=== PATIENT | male | born 1995 | race American Indian/Alaskan Native ===

== ENCOUNTER 2019-09-29 04:08 | Emergency (ER) | payer MEDICAID, SELFPAY ==
--- NOTE | 2019-09-29 04:12 | ED_ITS ---
HPI - Extremity Problem General Chief complaint: Skin/Abscess/Foreign Body Stated complaint: states infection on right thumb Time Seen by Provider: 09/29/19 04:11 History of Present Illness HPI Narrative: 24-year-old gentleman with a history of IV heroin and methamphetamine use disorders. He was originally seen at [facility] on September 09 with a complicated right, infection and tendon sheath infection. Was taken to the operating room and the area was drained. He left the hospital against medical advice shortly thereafter. When the thumb began to look more infected again he presented to [facility] in [place] and was given antibiotics which he was unable to fill. Presents today complaining of increasing right thumb pain and redness but no tenderness up into the wrist or the forearm or suggestion of recurrent tendon sheath involvement yet. He has full sensation distally. He describes no fevers or chills. Reports that he is homeless and has little resources and does not believe he has any friends or family that can help with filling prescriptions. Regarding his addiction issues, he has been seen 1 time at [facility] and [place] He has not chosen to continue at the clinic nor access any of the healthcare services options are prescription options at this were no [facility]. Related Data Previous Rx's Medication Instructions Recorded clindamycin HCl 300 mg PO TID #21 cap 09/29/19 sulfamethoxazole-trimethoprim 1 tab PO BID #20 tab 09/29/19 Allergies Allergy/AdvReac Type Severity Reaction Status Date / Time No Known Drug Allergies Allergy Verified 09/29/19 05:04 Review of Systems Review of Systems Narrative: Pertinent positive and negative findings as per HPI Remainder of review of systems is otherwise unremarkable for Constitutional: Fevers, chills, weakness ENT: No sore throat, neck pain, ear pain CV: Chest pain, palpitations, dyspnea on exertion Respiratory: Cough, wheeze, dyspnea GI: Nausea, vomiting, diarrhea, change in bowel habits, black or bloody stools : Dysuria, hematuria, flank pain MS: Muscle weakness, numbness, joint swelling or warmth Neuro: Syncope, dizziness, tingling Psych: Depression, anxiety, suicidal ideation Patient History Medical History Infection of thumb (Acute) IV drug user (Acute) Methamphetamine use disorder, mild (Acute) Opioid use disorder (Acute) Social History Smoking Status: Current every day smoker Exam Narrative Exam Narrative: General: Dressed in multiple layers, poor eye contact with her the over his head baseball cap covering his eyes. He is able to give an abbreviated history HEENT: Moist mucous membranes, normal sclera with small minimally reactive pupils, Neck: , supple Respiratory: Lungs are clear to auscultation, no wheezing no rales no rhonchi. Full and symmetrical air movement Cardiac: Regular rate and rhythm no murmurs with careful auscultation no bruits Abdomen: Soft nontender good bowel tones, no flank pain Skin: Warm and dry, track miller on the left arm. Neurologic: Grossly neurologically intact with no obvious asymmetries or abnormalities Extremities: Left thumb erythematous slightly swollen not warm to the touch no fluctuance no obvious abscess or drainage. No increase tenderness with flexion or extension and full power with both flexion and extension. Thumb nail is absent. Psych: Reluctantly Cooperative, poor eye contact Initial Vital Signs Initial Vital Signs: Vital Signs Temperature 98.3 F 09/29/19 04:18 Pulse Rate 83 09/29/19 04:18 Respiratory Rate 16 09/29/19 04:18 Blood Pressure 145/85 H 09/29/19 04:18 Pulse Oximetry 98 09/29/19 04:18 Course Orders Ordered: Discontinued Medications Clindamycin HCl (Cleocin) 300 mg PO NOW ONE Stop: 09/29/19 04:56 Last Admin: 09/29/19 05:25 Dose: 300 mg Documented by: YOBANI Trimethoprim/Sulfamethoxazole (Bactrim Ds) 1 tab PO NOW ONE Stop: 09/29/19 04:56 Last Admin: 09/29/19 05:25 Dose: 1 tab Documented by: YOBANI Trimethoprim/Sulfamethoxazole (Bactrim Ds Prepack) 1 bottle MISC SEEINSTR ONE Stop: 09/29/19 04:56 Last Admin: 09/29/19 05:25 Dose: 1 bottle Documented by: YOBANI Vital Signs Vital signs: Vital Signs - 8 hr 09/29/19 04:18 Temperature 98.3 F Pulse Rate 83 Respiratory Rate 16 Blood Pressure 145/85 H Pulse Oximetry 98 MDM - Extremity (Nontraumatic) MDM Narrative Medical decision making narrative: 24-year-old gentleman with opiate use disorder and methamphetamine use disorder with a right thumb tendon sheath infection that was drained on September 09 that has not had appropriate antibiotic follow-up. He is having new symptoms developing. At this point there is not evidence of deep abscess or tendon sheath involvement based on pain and clinical exam. No signs of sepsis or systemic infection. Will start him on both Bactrim and clindamycin with initial doses in the emergency department and prescriptions written. Will encourage him to do well that he can to talk with family and friends to see if they can help fill prescriptions Encouraged him to follow-up with both addiction and primary care clinics. Safe from discharge Discharge Plan Departure Patient Disposition: Home Clinical Impression: Opioid use disorder, Methamphetamine use disorder, mild Cellulitis Qualifiers: Site of cellulitis: extremity Site of cellulitis of extremity: finger Laterality: right Qualified Code(s): L03.011 - Cellulitis of right finger Discharge Date/Time: 09/29/19 06:27 Instructions: DI for Cellulitis -- Adult Activity Restrictions/Additional Instructions: Thank you for coming in today I am sorry you been unable to follow-up with some of the medical advice and medications from your previous visits. It is essential that you complete this course of antibiotics. The potential for your finger to become permanently infected or have the bone become infected is significant. If that happens you will need at least 6 weeks of IV antibiotics and there is the potential to need the finger amputated. I have given your 1st dose here in the emergency room. I have 1 of the antibiotics to give you an additional dose unfortunately, I do not have the other antibiotic available to give to you. I have given you prescriptions for both. Please do whatever it takes, talk with which ever friends and family you can to see if they will help fill these prescriptions Regarding your heroin and methamphetamine use, there is help available. Please consider getting back to [facility]. Your life is worth the effort and is worth saving. I wish you the best Prescriptions: New sulfamethoxazole-trimethoprim 800-160 mg tablet 1 tab PO BID Qty: 20 RF: 0 clindamycin HCl 300 mg capsule 300 mg PO TID Qty: 21 RF: 0
[2019-09-29 04:18] VITALS: BP 145/85; PULSE 83; RESP 16; TEMP 36.8; O2SAT 98; BMI 19.0
[2019-09-29] MEDS: TRIMETH/SULFA 160/800 (DS) TABLET 1 TAB PO (05:25)
[2019-09-29] MEDS: CLINDAMYCIN 150 MG CAPSULE 300 MG PO (05:25)
[2019-09-29] MEDS: TRIMETH/SULFA 160/800 PREPACK 1 BOTTLE MISC (05:25)
--- NOTE | 2019-09-29 05:32 | PC.NURSE ---
provided a sandwich and juice.
[2019-09-29 06:25] VITALS: BP 144/84; PULSE 85; RESP 14; O2SAT 98
== END 2019-09-29 06:27 | disposition home or self-care (01) ==
PROVIDERS: Emergency Provider Emergency Medicine
DX: L03.011 Cellulitis of right finger (principal); F11.99 Opioid use, unspecified with unspecified opioid-induced disorder; F15.10 Other stimulant abuse, uncomplicated; F19.90 Other psychoactive substance use, unspecified, uncomplicated
CPT/HCPCS: 99283